=== PATIENT | female | born 1950 | race African-American/Black ===

== ENCOUNTER → 2024-10-04 | Outpatient (CLI) | payer MEDICARE, OTHER ==
--- NOTE | 2024-10-04 16:22 | CA ---
Transthoracic Echo Report Name: Christa Chawla Age: 74 Gender: F : 1950 Exam Date: 10/04/2024 14:36 Exam Location: [facility] Ht (in): 62 Wt (lb): 185 Ordering Physician: Manuel Box DO Attending/Referring Phys: Cyril Machuca [facility] Optomechanical Technician Lona Smiley RDCS Procedure CPT: Indications: R01.1 CARDIAC MURMUR, UNSPECIFIED Cardiac Hx: Technical Quality: Fair Contrast 1: Total Dose (mL): Contrast 2: Total Dose (mL): MEASUREMENTS (Male / Female) Normal Values 2D ECHO LV Diastolic Diameter PLAX 3.7 cm 4.2 - 5.9 / 3.9 - 5.3 cm LV Systolic Diameter PLAX 3.0 cm IVS Diastolic Thickness 1.7 cm 0.6 - 1.0 / 0.6 - 0.9 cm LVPW Diastolic Thickness 1.6 cm 0.6 - 1.0 / 0.6 - 0.9 cm LV Relative Wall Thickness 0.9 RV Internal Dim ED PLAX 2.4 cm LA Volume 105.7 cm??? 18 - 58 / 22 - 52 cm??? LA Volume Index 54.1 cm???/m??? 16 - 28 cm???/m??? M-MODE Aortic Root Diameter MM 3.0 cm LA Systolic Diameter MM 4.5 cm LA Ao Ratio MM 1.5 AV Cusp Separation MM 1.8 cm DOPPLER AV Peak Velocity 131.0 cm/s AV Peak Gradient 6.9 mmHg AV Mean Velocity 86.4 cm/s AV Mean Gradient 3.5 mmHg AV Velocity Time Integral 27.9 cm LVOT Peak Velocity 86.1 cm/s LVOT Peak Gradient 3.0 mmHg LVOT Velocity Time Integral 17.2 cm MV Area PHT 3.4 cm??? Mitral E Point Velocity 81.0 cm/s Mitral A Point Velocity 93.9 cm/s Mitral E to A Ratio 0.9 MV Deceleration Time 226.4 ms MV E' Velocity 3.0 cm/s Mitral E to MV E' Ratio 27.0 TR Peak Velocity 251.3 cm/s TR Peak Gradient 25.3 mmHg FINDINGS Left Ventricle Severely increased left ventricular wall thickness. Left ventricular cavity size normal. No obvious regional wall motion abnormalities. Left ventricular ejection fraction is estimated at 55 %. Right Ventricle Normal right ventricular size and function. Right ventricular systolic pressure within normal limits. Right Atrium Mild right atrial dilatation. Left Atrium Severely increased left atrial volume. Mildly increased left atrial area. Mitral Valve Structurally normal mitral valve. Mild mitral annular calcification. Mild mitral regurgitation. Aortic Valve No aortic stenosis. Trace aortic regurgitation. Tricuspid Valve Structurally normal tricuspid valve. Mild tricuspid regurgitation. Pulmonic Valve Structurally normal pulmonic valve. No pulmonic regurgitation. Pericardium No pericardial effusion. Aorta Mildly dilated proximal ascending aorta (tube). CONCLUSIONS Normal LV function Mild mitral regurgitation Previewed by: Dr. Juanjo Woods MD (Electronically Signed) Final Date: 04 October 2024 16:21
== END | disposition home or self-care (01) ==
LOC: RADECHMAIN 14:26
PROVIDERS: ATTEND Family Medicine
DX: I34.0 Nonrheumatic mitral (valve) insufficiency (principal); R01.1 Cardiac murmur, unspecified
CPT/HCPCS: 93306